=== PATIENT | male | born 1950 | race Caucasian/White ===

== ENCOUNTER 2017-02-09 10:07 | Outpatient (CLI) | payer OTHER, MEDICARE ==
[2017-02-05 15:29] LABS: BASOPHILS # (AUTO) 0.1 K/uL (0.0-0.2); BASOPHILS % (AUTO) 1.8 % (0.0-2.0); EOSINOPHILS # (AUTO) 0.1 K/uL (0.0-0.4); EOSINOPHILS % (AUTO) 2.2 % (0.0-4.0); HEMATOCRIT 46.2 % (36-54); HEMOGLOBIN 14.5 g/dL (14.0-18.0); LYMPHOCYTES # (AUTO) 1.1 K/uL (1.0-5.5); LYMPHOCYTES % (AUTO) 19.2 % (20.5-51.5); MEAN CORPUSCULAR HEMOGLOBIN 28 pg (27-31); MEAN CORPUSCULAR HGB CONC 31 % (32-36); MEAN CORPUSCULAR VOLUME 89 fL (79.0-98.0); MONOCYTES # (AUTO) 0.3 K/uL (0.0-1.0); MONOCYTES % (AUTO) 5.6 % (1.7-9.3); NEUTROPHILS # (AUTO) 4.1 K/uL (1.8-7.7); NEUTROPHILS % (AUTO) 71.2 % (40.0-70.0); PLATELET COUNT (AUTO) 325 K/uL (130-430); RED BLOOD CELL COUNT(AUTO) 5.22 MIL/uL (4.2-6.2); RED CELL DISTRIBUTION WIDTH 12.9 % (9.0-15.0); WHITE BLOOD COUNT (AUTO) 5.7 K/uL (4.8-10.8)
[2017-02-05 15:54] LABS: CALCIUM 9.6 mg/dL (8.4-11.0); CREATININE 0.77 mg/dL (0.55-1.30); POTASSIUM 4.5 mmol/L (3.5-5.1)
[2017-02-05 16:00] LABS: PROTHROMBIN TIME 10.5 SECS (9.5-12.5)
[~2017-02-09] VITALS: Ht 165.1 cm; Wt 64.9 kg
[~2017-02-09 10:07] MED LIST: CEFAZOLIN SOD 1 GM/ ISO 50 ML PREMIX IV ONE
[2017-02-09 10:37] VITALS: BP_SYST 139
== END 2017-02-09 10:42 | disposition home or self-care (01) ==
LOC: SDS 10:07 → SLB 10:07 → SDS 10:08 → SMU 10:08 → SDS 10:42 → SLB 10:42 → EDSTATUS 12:00 → SDS 15:45 → SMU 15:45
PROVIDERS: ATTEND Transplant Surgery
DX: K40.20 Bilateral inguinal hernia, without obstruction or gangrene, not specified as recurrent (principal); R10.32 Left lower quadrant pain; G20 Parkinson's disease; I48.92 Unspecified atrial flutter; R60.0 Localized edema; R03.0 Elevated blood-pressure reading, without diagnosis of hypertension
CPT/HCPCS: 36415; 80048; 85025; 85610; 85730; 93005; J7120; J0690

== ENCOUNTER 2017-03-31 09:09 | Day surgery (SDC) | payer OTHER, MEDICARE ==
[2017-03-30 12:21] LABS: BASOPHILS % (AUTO) 0.6 % (0.0-2.0); EOSINOPHILS # (AUTO) 0.2 K/uL (0.0-0.4); EOSINOPHILS % (AUTO) 2.7 % (0.0-4.0); HEMATOCRIT 43.3 % (36-54); HEMOGLOBIN 14.4 g/dL (14.0-18.0); LYMPHOCYTES # (AUTO) 1.2 K/uL (1.0-5.5); LYMPHOCYTES % (AUTO) 21.6 % (20.5-51.5); MEAN CORPUSCULAR HEMOGLOBIN 29 pg (27-31); MEAN CORPUSCULAR HGB CONC 33 % (32-36); MEAN CORPUSCULAR VOLUME 88 fL (79.0-98.0); MONOCYTES # (AUTO) 0.3 K/uL (0.0-1.0); NEUTROPHILS % (AUTO) 69.1 % (40.0-70.0); PLATELET COUNT (AUTO) 290 K/uL (130-430); RED BLOOD CELL COUNT(AUTO) 4.92 MIL/uL (4.2-6.2); RED CELL DISTRIBUTION WIDTH 13.2 % (9.0-15.0); WHITE BLOOD COUNT (AUTO) 5.7 K/uL (4.8-10.8)
[2017-03-30 12:26] LABS: CREATININE 0.87 mg/dL (0.55-1.30); POTASSIUM 4.4 mmol/L (3.5-5.1)
[2017-03-30 12:30] LABS: PROTHROMBIN TIME 10.4 SECS (9.5-12.5)
[~2017-03-31] VITALS: Ht 162.6 cm; Wt 64.9 kg
[~2017-03-31 09:09] MED LIST changes: +CEFAZOLIN 1 GM IVPB PREMIX 50 ML IV ONE; -CEFAZOLIN SOD 1 GM/ ISO 50 ML PREMIX IV ONE
[2017-03-31] MEDS ORDERED: POLYMYXIN 500,000/BACIT.10,000 UNITS in NS IRR 1 L IR ONE (13:29)
[2017-03-31] MEDS ORDERED: fentaNYL CITRATE/PF 100 MCG/2 ML AMP IVP PRN ×2 (14:00)
[2017-03-31] MEDS ORDERED: ONDANSETRON HCL 4 MG/2 ML VIAL IVP PRN (14:00)
[2017-03-31] MEDS ORDERED: ONDANSETRON HCL 4 MG/2 ML VIAL IVP ONE (15:00)
[2017-03-31] MEDS ORDERED: NEOSTIGMINE METHYLSULFATE 1 MG/ML, 10 ML VIAL IVP ONE (15:00)
[2017-03-31] MEDS ORDERED: LR 1,000 ML IV.SOLN IV ONE (15:00)
[2017-03-31] MEDS ORDERED: fentaNYL CITRATE/PF 100 MCG/2 ML AMP IVP ONE ×2 (15:00→15:48)
[2017-03-31] MEDS ORDERED: SEVOFLURANE 15 MIN GAS INH ONE (15:00)
[2017-03-31] MEDS ORDERED: BUPIVACAINE /PF 0.25% 30 ML VIAL INJ ONE (15:00)
[2017-03-31] MEDS ORDERED: GLYCOPYRROLATE 0.2 MG/ML VIAL IJ ONE (15:00)
[2017-03-31] MEDS ORDERED: ROCURONIUM BROMIDE 10 MG/ML (ZEMURON) IV ONE (15:00)
[2017-03-31] MEDS ORDERED: PROPOFOL 200MG/ 20ML VIAL (DIPRIVAN) IV ONE (15:00)
[2017-03-31] MEDS ORDERED: MIDAZOLAM HCL 5 MG/ML VIAL (VERSED) IV ONE (15:00)
[2017-03-31] MEDS ORDERED: fentaNYL CITRATE/PF 100 MCG/2 ML AMP ONE (15:46)
[2017-03-31] MEDS ORDERED: HYDROcodone/ACETAMIN 5-325 MG TAB (NORCO/ VICODIN) ONE (17:23)
[2017-03-31] MEDS ORDERED: HYDROcodone/ACETAMIN 5-325 MG TAB (NORCO/ VICODIN) PO ONE (17:30)
== END 2017-03-31 17:45 | disposition home or self-care (01) ==
LOC: SDS 09:09 → SMU 09:10 → SDS 17:45
PROVIDERS: ATTEND Transplant Surgery
DX: K40.20 Bilateral inguinal hernia, without obstruction or gangrene, not specified as recurrent (principal); D17.6 Benign lipomatous neoplasm of spermatic cord
CPT/HCPCS: 36415; 49650; 80048; 85025; 85610; 85730; C1781; J0690; J2250; J2405; J2704; J2710; J3010; J3490 ×2; J7120